=== PATIENT | female | born 2000 | race Caucasian/White ===

== ENCOUNTER 2021-04-05 16:48 | Emergency (ER) | payer OTHER ==
[~2021-04-05] VITALS: Ht 157.5 cm; Wt 52.3 kg
[2021-04-05 17:20] VITALS: BP 134/73
[2021-04-05] MEDS ORDERED: TraMADol HCL 50 MG TABLET PO ONE (17:30)
== END 2021-04-05 18:37 | disposition home or self-care (01) ==
LOC: EMS 16:48
DX: K08.89 Other specified disorders of teeth and supporting structures (principal)
CPT/HCPCS: 99283